=== PATIENT | female | born 1950 | race Caucasian/White ===

== ENCOUNTER 2024-06-28 14:09 | Outpatient (CLI) | payer MEDICARE | END 2024-06-28 14:10 | disposition home or self-care (01) | LOC: CSHMAMMO 14:09 | PROVIDERS: ATTEND Internal Medicine | DX: M81.0 Age-related osteoporosis without current pathological fracture (principal); E04.2 Nontoxic multinodular goiter; M85.89 Other specified disorders of bone density and structure, multiple sites | CPT/HCPCS: 76536; 77080 ==